=== PATIENT | male | born 1965 | race Caucasian/White ===

== ENCOUNTER 2018-04-23 10:28 | Observation (INO) ==
[2018-04-23] MEDS ORDERED: Morphine Inj 4 MG/ML Vial IV.PUSH ONE (10:42)
--- NOTE | 2018-04-23 10:48 | ED ---
HPI General Chief Complaint: Chest Pain Stated Complaint: Blood Pressure Time Seen by Provider: 04/23/18 10:42 Source: patient Mode of arrival: ambulatory Limitations: no limitations History of Present Illness MD complaint: chest pain Complete Quality Measures for STEMI Alert Patients STEMI Alert: No Onset (ago): hour(s) (4) Duration: constant Onset: during rest Pain location: substernal Severity: moderate Severity scale (1-10): 5 Quality: tightness Pain radiation: none Relieving factors: nothing Exacerbating factors: nothing Context: other (Patient is noncompliant with his medications, as he brought an empty bottle carvedilol has not been filled since 2017) Treatments prior to arrival chest pain: none Related Data Allergies Allergy/AdvReac Type Severity Reaction Status Date / Time No Known Allergies Allergy Verified 04/23/18 10:42 Review of Systems Except as stated in HPI: all other systems reviewed are negative PMFSH History History Provided By: Patient and Family Member Medical History Medical History High cholesterol (Acute) Hypertension (Acute) Stroke (Acute) Surgical History Surgical History H/O hernia repair (Acute) Social History Social History Substance History: No History of Abuse Second Hand Smoke Exposure: Yes Smoking Status: Current every day smoker Tobacco Type: Cigarettes How Often Do You Have a Drink Containing Alcohol: 2 to 3 times a week Exam Narrative Exam Narrative: GENERAL: Well-nourished, well-developed patient in no apparent distress. SKIN: Warm and dry. HEAD: Atraumatic. Normocephalic. EYES: Pupils equal and round. No scleral icterus. No injection or drainage. ENT: No nasal bleeding or discharge. Mucous membranes pink and moist. NECK: Trachea midline. No JVD. CARDIOVASCULAR: Regular rate and rhythm. no rubs or gallops RESPIRATORY: No accessory muscle use. Clear to auscultation. Breath sounds equal bilaterally. GASTROINTESTINAL: Abdomen soft, non-tender, nondistended. No rebound or guarding MUSCULOSKELETAL: Extremities without clubbing, cyanosis, or edema. No obvious deformities. NEUROLOGICAL: Awake and alert. No obvious cranial nerve deficits. Motor grossly within normal limitsExcept for right upper extremity contracted to a stroke per patient Normal speech. PSYCHIATRIC: Appropriate mood and affect; insight and judgment normal. Course Initial Documented Vital Signs Temperature 97.7 F 04/23/18 10:30 Pulse Rate 79 07/08/18 10:30 Respiratory Rate 17 04/23/18 10:30 Blood Pressure 243/132 H 04/23/18 10:30 Pulse Oximetry 97 04/23/18 10:30 Last Documented Vital Signs Temperature 97.7 F 04/23/18 10:30 Pulse Rate 71 04/23/18 11:25 Respiratory Rate 18 04/23/18 11:36 Blood Pressure 200/115 H 04/23/18 11:25 Pulse Oximetry 97 04/23/18 11:25 Critical Care Time Critical Care Time: Yes Total Critical Care Time: 30 Attestation: Aggregate critical care time was [30] minutes. Time to perform other separately billable procedures was not included in the critical care time. My time did not include minutes spent treating any other patients simultaneously or on activities that did not directly contribute to the patient's treatment. The services I provided to this patient were to treat and/or prevent clinically significant deterioration that could result in: [Intracranial hemorrhage, CVA, permanent disability, -] I provided critical care services requiring my management, as noted below: Chart data review, documentation time, medication orders and management, vital sign assessments/reviewing monitor data, ordering and reviewing lab tests, ordering and interpreting/reviewing x-rays and diagnostic studies, care of the patient and discussion of the patient with the admitting physicians. Medical Decision Making Differential Diagnosis Differential Diagnosis: Hypertensive emergency versus intracranial hemorrhage versus SD versus non-STEMI versus aneurysm versus dissection Lab Data Result diagrams: 04/23/18 10:56 04/23/18 10:56 Lab Results 04/23/18 04/23/18 04/23/18 Range/Units 10:56 10:56 10:56 WBC 9.0 (4.0-11.0) th/mm3 RBC 5.35 (4.50-5.90) mil/mm3 Hgb 16.4 (13.0-17.0) gm/dL Hct 49.0 (39.0-51.0) % MCV 91.6 (80.0-100.0) fL MCH 30.7 (27.0-34.0) pg MCHC 33.6 (32.0-36.0) % RDW 13.3 (11.6-17.2) % Plt Count 242 (150-450) th/mm3 MPV 8.3 (7.0-11.0) fL Neut % (Auto) 55.8 (16.0-70.0) % Lymph % (Auto) 29.6 (9.0-44.0) % Hinds % (Auto) 10.9 H (0.0-8.0) % Eos % (Auto) 2.9 (0.0-4.0) % Baso % (Auto) 0.8 (0.0-2.0) % Neut # (Auto) 5.0 (1.8-7.7) th/mm3 Lymph # (Auto) 2.7 (1.0-4.8) th/mm3 Hinds # (Auto) 1.0 H (0.0-0.9) th/mm3 Eos # (Auto) 0.3 (0.0-0.4) th/mm3 Baso # (Auto) 0.1 (0.0-0.2) th/mm3 WBC Differential . Differential Comment Auto diff final PT 10.2 (9.8-11.6) sec INR 1.0 Ratio APTT 30.5 H (24.3-30.1) sec Sodium 138 (136-145) meq/L Potassium 3.8 (3.5-5.1) meq/L Chloride 105 (98-107) meq/L Carbon Dioxide 24.4 (21.0-32.0) meq/L Anion Gap 9 (5-15) meq/L BUN 21 H (7-18) mg/dL Creatinine 1.14 (0.60-1.30) mg/dL Estimated GFR 67 L (>89) mL/min Fasting Glucose 97 (74-99) mg/dL Calcium 9.3 (8.5-10.1) mg/dL Magnesium 2.2 (1.5-2.5) mg/dL Total Bilirubin 0.6 (0.2-1.0) mg/dL AST 40 H (15-37) U/L ALT 69 (12-78) U/L Alkaline Phosphatase 89 (45-117) U/L Total Creatine Kinase 105 (39-308) U/L CK-MB (CK-2) 0.5 (0.5-3.6) ng/mL Troponin I Less than 0.02 L (0.02-0.05) ng/mL B-Natriuretic Peptide (0-100) pg/mL Total Protein 7.7 (6.4-8.2) g/dL Albumin 4.0 (3.4-5.0) g/dL 04/23/18 Range/Units 10:56 WBC (4.0-11.0) th/mm3 RBC (4.50-5.90) mil/mm3 Hgb (13.0-17.0) gm/dL Hct (39.0-51.0) % MCV (80.0-100.0) fL MCH (27.0-34.0) pg MCHC (32.0-36.0) % RDW (11.6-17.2) % Plt Count (150-450) th/mm3 MPV (7.0-11.0) fL Neut % (Auto) (16.0-70.0) % Lymph % (Auto) (9.0-44.0) % Hinds % (Auto) (0.0-8.0) % Eos % (Auto) (0.0-4.0) % Baso % (Auto) (0.0-2.0) % Neut # (Auto) (1.8-7.7) th/mm3 Lymph # (Auto) (1.0-4.8) th/mm3 Hinds # (Auto) (0.0-0.9) th/mm3 Eos # (Auto) (0.0-0.4) th/mm3 Baso # (Auto) (0.0-0.2) th/mm3 WBC Differential Differential Comment PT (9.8-11.6) sec INR Ratio APTT (24.3-30.1) sec Sodium (136-145) meq/L Potassium (3.5-5.1) meq/L Chloride (98-107) meq/L Carbon Dioxide (21.0-32.0) meq/L Anion Gap (5-15) meq/L BUN (7-18) mg/dL Creatinine (0.60-1.30) mg/dL Estimated GFR (>89) mL/min Fasting Glucose (74-99) mg/dL Calcium (8.5-10.1) mg/dL Magnesium (1.5-2.5) mg/dL Total Bilirubin (0.2-1.0) mg/dL AST (15-37) U/L ALT (12-78) U/L Alkaline Phosphatase (45-117) U/L Total Creatine Kinase (39-308) U/L CK-MB (CK-2) (0.5-3.6) ng/mL Troponin I (0.02-0.05) ng/mL B-Natriuretic Peptide 33 (0-100) pg/mL Total Protein (6.4-8.2) g/dL Albumin (3.4-5.0) g/dL Imaging Data Radiologist's impression: ITS Impressions Chest X-Ray 04/23/18 10:42 CONCLUSION: No acute cardiopulmonary disease ECG Data EKG Prior to Arrival: No Attestation: I personally reviewed and interpreted this ECG as follows: Prior ECG tracings: not available for review Interpretation: Normal sinus rhythm, 65 bpm, normal intervals, mild baseline motion artifact however no evidence of any ST elevation SD pattern Discharge Plan Discharge Disposition Patient Disposition: 30 Still Patient Discharge Condition Condition: Stable Discharge Details Discharge Problem: Hypertensive urgency, Chest pain Physicians Team ED Provider: Troy Lopez Discharge Instructions Patient Printed Instructions: Chest Pain (ED) Status ED Status: With Doctor
[2018-04-23] MEDS: Metoprolol Inj 5 MG/5 ML Vial IV.PUSH SCH ×3 (10:55→12:31)
[2018-04-23 11:15] LABS: Baso # (Auto) 0.1 th/mm3 (0.0-0.2); Baso % (Auto) 0.8 % (0.0-2.0); Eos # (Auto) 0.3 th/mm3 (0.0-0.4); Eos % (Auto) 2.9 % (0.0-4.0); Hemoglobin 16.4 gm/dL (13.0-17.0); Lymph # (Auto) 2.7 th/mm3 (1.0-4.8); Lymph % (Auto) 29.6 % (9.0-44.0); Mean Corpuscular HGB Conc 33.6 % (32.0-36.0); Mean Corpuscular Hemoglobin 30.7 pg (27.0-34.0); Mean Corpuscular Volume 91.6 fL (80.0-100.0); Mean Platelet Volume 8.3 fL (7.0-11.0); Mono % (Auto) 10.9 % (0.0-8.0); Neut % (Auto) 55.8 % (16.0-70.0); Platelet Count 242 th/mm3 (150-450); Red Blood Count 5.35 mil/mm3 (4.50-5.90); Red Cell Distribution Width 13.3 % (11.6-17.2)
[2018-04-23 11:24] LABS: Activated Partial Thrombo Time 30.5 sec (24.3-30.1); Prothrombin Time 10.2 sec (9.8-11.6)
--- NOTE | 2018-04-23 11:31 | XR ---
EXAM DATE: 04/23/2018 11:16 AM EDT AGE/SEX: 52 years / Male INDICATIONS: Chest Pain, High Blood Pressure CLINICAL DATA: This is the patient's initial encounter. Patient reports that signs and symptoms have been present for 1 day and indicates a pain score of 0/10. MEDICAL/SURGICAL HISTORY: Hypertension. None. COMPARISON: No prior exams available for comparison. FINDINGS: A single AP view of the chest demonstrates the lungs to be symmetrically aerated without evidence of mass, infiltrate or effusion. The cardiomediastinal contours are unremarkable. Osseous structures a re intact. CONCLUSION: No acute cardiopulmonary disease Electronically signed by: Tom Singh MD 04/23/2018 11:30 AM EDT
[2018-04-23 11:37] LABS: Anion Gap 9 meq/L (5-15); Aspartate Aminotransferase 40 U/L (15-37); Blood Urea Nitrogen 21 mg/dL (7-18); Calcium 9.3 mg/dL (8.5-10.1); Carbon Dioxide 24.4 meq/L (21.0-32.0); Chloride 105 meq/L (98-107); Glomerular Filtration Rate 67 mL/min (>89); Magnesium 2.2 mg/dL (1.5-2.5); Potassium 3.8 meq/L (3.5-5.1); Sodium 138 meq/L (136-145)
[2018-04-23 11:38] LABS: Alanine Aminotransferase 69 U/L (12-78)
[2018-04-23 11:41] LABS: Alkaline Phosphatase 89 U/L (45-117); Creatine Kinase 105 U/L (39-308); Total Protein 7.7 g/dL (6.4-8.2)
[2018-04-23 11:54] LABS: Creatine Kinase MB 0.5 ng/mL (0.5-3.6)
--- NOTE | 2018-04-23 12:33 | P.HPFP ---
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 Patient with at bedside who contributed to history. He reports that his pain started on , and at the time thought it was heartburn. He describes the pain as pressure. It radiated from the throat to the left pectoralis and was associated with blurry vision and left hand numbness. The pain was non-positional, unrelated to breathing, activity or with food. There were no aggravating factors. The pain occurred 2-3 times per day and denies any difficulty breathing. Patient reports drinking 5-6 cups of coffee a day for over 40 years. He was previously prescribed carvedilol for his HTN 2 years and tried taking the last of this prescription to lower his bp. The last time he saw a physician was 2 years ago. He denies any fevers, chills, nausea, vomiting or recent illnesses. - Diagnosis (1) Chest pain (2) Hypertension Inpatient Certification: I certify that the inpatient services were ordered in accordance with Medicare regulations governing the order. This includes certification that hospital inpatient services are reasonable and necessary and in the case of services not specified as inpatient-only under 42 CFR 419.22(n), that they are appropriately provided as inpatient services in accordance to with the 2-midnight benchmark under 43 CFR 412.3(e) Plans for Post Hospital Care: Home Review of Systems Constitutional: Denies body ache(s), Denies chills, Denies excessive sweating, Denies fatigue, Denies fever(s), Denies night sweats Eyes: Reports blurry vision, Reports change in vision, Denies loss of vision Comments: Durring episodes Ears, Nose, Mouth, and Throat: Denies abnormal hearing Cardiovascular: Reports chest pain, Reports chest pain at rest, Reports shortness of breath, Denies chest pain with activity, Denies excessive sweating , Denies fainting, Denies fast heart rate, Denies irregular heart rhythm, Denies leg swelling, Denies radiating jaw, neck or arm pain, Denies rapid, pounding, or irregular heartbeat, Denies shortness of breath with activity, Denies shortness of breath when lying down Respiratory: Denies chest congestion, Denies cough, Denies shortness of breath with activity, Denies stridor Gastrointestinal: Denies abdominal pain, Denies black, tarry stools, Denies change in bowel habits, Denies heartburn, Denies nausea, Denies vomiting Genitourinary: Denies difficulty urinating, Denies painful urination Musculoskeletal: Denies abnormal walking, Denies body aches Neurologic: Reports headache(s), Reports numbness, Denies abnormal hearing, Denies abnormal movements, Denies abnormal speech, Denies confusion, Denies dizziness, Denies lack of coordination, Denies localized weakness, Denies loss of vision, Denies memory loss Comments: Patient reports some hand numbness that began recently. Exact onset unknown. Psychiatric: Reports abnormal sleep pattern, Denies anxiety, Denies behavioral changes, Denies change in appetite, Denies confusion, Denies depression, Denies difficulty concentrating, Denies irritability, Denies memory loss Comments: Has not slept in days Endocrine: Denies cold intolerance, Denies excessive sweating, Denies heat intolerance, Denies rapid, pounding, or irregular heartbeat Hematologic/Lymphatic: Denies easy bleeding Allergic/Immunologic: Denies GI upset with certain foods PMFSH - History History Provided By: Patient, Family Member - Medical History Medical History: Medical History (Last Updated 04/23/18 @ 10:49 by Avis Eduardo) High cholesterol Hypertension Stroke - Surgical History Surgical History: Surgical History (Last Updated 04/23/18 @ 10:49 by Avis Eduardo) H/O hernia repair - Tobacco History Second Hand Smoke Exposure: Yes Tobacco Use In Past 30 Days: Yes Smoking Status: Current every day smoker Tobacco Type: Cigarettes - Alcohol History How Often Do You Have a Drink Containing Alcohol: 2 to 3 times a week - Substance Use History Substance History: No History of Abuse - Immunization History Tetanus Immunization: Unsure Hx Influenza Vaccine This Season: No Medications and Allergies Active Medications: Active Medications Sodium Chloride (Ns Flush) 2 ml IV.FLUSH UNSCH PRN PRN Reason: FLUSH AFTER USING IV ACCESS Allergies Allergy/AdvReac Type Severity Reaction Status Date / Time No Known Allergies Allergy Verified 04/23/18 10:42 Home Medications Medication Instructions Recorded Confirmed Type Coreg 12.5 mg PO BID 04/23/18 04/23/18 History Exam Vital signs: Vital Signs 04/23/18 10:30 04/23/18 10:47 04/23/18 11:25 Temperature 97.7 F Pulse Rate 79 71 Respiratory Rate 17 16 Blood Pressure 243/132 H 200/115 H Blood Pressure [Left Arm] 222/132 H Blood Pressure [Right Arm] 238/146 H Pulse Oximetry 97 97 97 04/23/18 11:36 04/23/18 12:28 Temperature Pulse Rate 66 Respiratory Rate 18 18 Blood Pressure 175/118 H Blood Pressure [Left Arm] Blood Pressure [Right Arm] Pulse Oximetry 97 Intake & Output 04/22/18 04/23/18 04/23/18 18:59 06:59 18:59 Weight 92.079 kg - Constitutional moderate distress, average body habitus, diaphoretic, cooperative - Routine HEENT Exam Head: Present: normocephalic, atraumatic Eye: Present: EOMI. Absent: conjunctival icterus, scleral injection - Routine Chest/Breast/Axilla Exam Chest wall: Absent: tenderness, mass - Routine Respiratory Exam Present: CTA bilaterally. Absent: accessory muscle use, rales, respiratory distress, rhonchi, stridor, wheezes, crackles - Routine Cardiovascular Exam Present: RRR, S1, S2. Absent: murmur, gallop, rubs - Routine Abdominal Exam Present: soft, normoactive bowel sounds. Absent: tenderness, distended, rebound , guarding - Routine Extremities Exam Absent: cyanosis, clubbing, edema - Routine Neurological Exam Present: alert, oriented X3, CN II-XII intact, motor deficit, moving all extremities, normal speech. Absent: sensory deficit, altered mental status, normal tone, facial asymmetry, tremors Patient has residual motor deficit from stroke in infancy, Right sided functional but strength 2/ in RUE and 3/5 in RLE. Right hand in clenched position. - Detailed Neurological Exam Cranial nerves: Normal CN II, Normal CN III, Normal CN IV, Normal CN V, Normal CN , Normal CN VII, Normal CN XI, Normal CN XII Speech: Absent: expressive aphasia, slurred Cerebellar function: Normal finger to nose - Detailed Neurological Exam: Coma Scale Eye Opening: Spontaneous Verbal Response: Oriented Motor Response: Obey commands Lexii Coma Scale Total: 15 Results - Labs Result diagrams: 04/23/18 10:56 04/23/18 10:56 Abnormal lab results 04/23/18 04/23/18 04/23/18 Range/Units 10:56 10:56 10:56 [place] % (Auto) 10.9 H (0.0-8.0) % [place] # (Auto) 1.0 H (0.0-0.9) th/mm3 APTT 30.5 H (24.3-30.1) sec BUN 21 H (7-18) mg/dL Estimated GFR 67 L (>89) mL/min AST 40 H (15-37) U/L Troponin I Less than 0.02 L (0.02-0.05) ng/mL Short CBC 04/23/18 Range/Units 10:56 WBC 9.0 (4.0-11.0) th/mm3 Hgb 16.4 (13.0-17.0) gm/dL Hct 49.0 (39.0-51.0) % Plt Count 242 (150-450) th/mm3 BMP 04/23/18 10:56 Sodium 138 Potassium 3.8 Chloride 105 Carbon Dioxide 24.4 BUN 21 H Creatinine 1.14 Calcium 9.3 Cardiac Enzymes 04/23/18 Range/Units 10:56 Total Creatine Kinase 105 (39-308) U/L CK-MB (CK-2) 0.5 (0.5-3.6) ng/mL Troponin I Less than 0.02 L (0.02-0.05) ng/mL Liver Function 04/23/18 Range/Units 10:56 Total Bilirubin 0.6 (0.2-1.0) mg/dL AST 40 H (15-37) U/L ALT 69 (12-78) U/L Alkaline Phosphatase 89 (45-117) U/L Albumin 4.0 (3.4-5.0) g/dL - Imaging Impressions Chest X-Ray 04/23/18 10:42 CONCLUSION: No acute cardiopulmonary disease EK04/23/18 Sinus rhythm NORMAL ECG Caprini VTE Risk Assessment Caprini VTE Risk Assessment: No/Low Risk (score <= 1) Caprini Risk Assessment Model: Point Value = 1 Point Value = 2 Point Value = 3 Point Value = 5 Age 41-60 Minor surgery BMI > 25 kg/m2 Swollen legs Varicose veins or History of unexplained or recurrent spontaneous Oral contraceptives or hormone replacement Sepsis (< 1 month) Serious lung disease, including pneumonia (< 1 month) Abnormal pulmonary function Acute myocardial infarction Congestive heart failure (< 1 month) History of inflammatory bowel disease Medical patient at bed rest Age 61-74 Arthroscopic surgery Major open surgery (> 45 min) Laparoscopic surgery (> 45 min) Malignancy Confined to bed (> 72 hours) Immobilizing plaster cast Central venous access Age >= 75 History of VTE Family history of VTE Factor V Leiden Prothrombin [id number] Lupus anticoagulant Anticardiolipin antibodies Elevated serum homocysteine Heparin-induced thrombocytopenia Other congenital or acquired thrombophilia Stroke (< 1 month) Elective arthroplasty Hip, pelvis, or leg fracture Acute spinal cord injury (< 1 month) Prophylaxis Regimen: Total Risk Factor Score Risk Level Prophylaxis Regimen 0-1 Low Early ambulation 2 Moderate Order ONE of the following: *Sequential Compression Device (SCD) *Heparin 5000 units SQ BID 3-4 Higher Order ONE of the following medications: *Heparin 5000 units SQ TID *Enoxaparin/Lovenox 40 mg SQ daily (WT < 150 kg, CrCl > 30 mL/min) *Enoxaparin/Lovenox 30 mg SQ daily (WT < 150 kg, CrCl > 10-29 mL/min) *Enoxaparin/Lovenox 30 mg SQ BID (WT < 150 kg, CrCl > 30 mL/min) AND/OR *Sequential Compression Device (SCD) 5 or more Highest Order ONE of the following medications: *Heparin 5000 units SQ TID (Preferred with Epidurals) *Enoxaparin/Lovenox 40 mg SQ daily (WT < 150 kg, CrCl > 30 mL/min) *Enoxaparin/Lovenox 30 mg SQ daily (WT < 150 kg, CrCl > 10-29 mL/min) *Enoxaparin/Lovenox 30 mg SQ BID (WT < 150 kg, CrCl > 30 mL/min) AND *Sequential Compression Device (SCD) Assessment and Plan - Assessment (1) Chest pain Code(s): R07.9 - Chest pain, unspecified Status: Acute Plan: Patient reports a 4 day history of throat and chest pain that does not radiate, is non-positonal, and unrelated to activity, breathing, or food. His pain had no aggravating factors but reports experiencing relief with tums. This patient has a 2 year history of HTN and has not been treated. Upon presentation in the ED the patient had a bp reading of 243/ 132. In the ED his bp was controlled with clonidine, metroprolol and nitroglycerine. His blood pressure at admission was 115/78. Initial troponin was less than .02 and initial EKG was normal. Admitted to obs for ACS rule out. - Trend troponin and CK-MB - Telemetry - Serial ECG - Monitor Vitals - Clonidine PRN - Neuro Checks - Cardiac Diet Nutrition: Cardiac/ Dash Diet Fluids and Electrolytes: NS DVT Prophylaxis: Heparin SQ (2) Hypertension Code(s): I10 - Essential (primary) hypertension Status: Chronic Plan: Patient diagnosed 2 years ago originally treated with carvedilol but has not seen a physician since 2017. on arrival to ED patients bp was at 243/132, now controlled. - PRN Clonidine goal <180/100. Assessment and Plan - Assessment (1) Chest pain Code(s): R07.9 - Chest pain, unspecified Status: Acute (2) Hypertension Code(s): I10 - Essential (primary) hypertension Status: Chronic (1) Chest pain Qualifiers: Chest pain type: unspecified Qualified Code(s): R07.9 - Chest pain, unspecified (2) Hypertension Qualifiers: Hypertension type: essential hypertension Qualified Code(s): I10 - Essential (primary) hypertension (1) Chest pain Qualifiers: Chest pain type: unspecified Qualified Code(s): R07.9 - Chest pain, unspecified (2) Hypertension Qualifiers: Hypertension type: essential hypertension Qualified Code(s): I10 - Essential (primary) hypertension
[2018-04-23] MEDS ORDERED: Temazepam 15 MG Capsule PO PRN (13:03)
[2018-04-23] MEDS ORDERED: Bisacodyl 10 MG Supp RECTAL PRN (13:03)
[2018-04-23] MEDS ORDERED: Sodium Chlor 0.9% Inj 500 ML IV.SIG ONE (13:20)
[2018-04-23] MEDS ORDERED: Enoxaparin Inj 30 MG/0.3 ML Syringe SQ SCH (14:00)
--- NOTE | 2018-04-23 14:00 | ECG ---
Date Performed: 04/23/2018 Time Performed: 10:44:47 PTAGE: 52 years EKG: Sinus rhythm NORMAL ECG NO PREVIOUS TRACING DOCTOR: Matt Taylor Interpretating Date/Time 04/23/2018 13:59:52
[2018-04-23 18:27] LABS: Creatine Kinase 73 U/L (39-308)
[2018-04-23] MEDS: Senna/Docusate Sodium 8.6/50 MG Tablet PO SCH (20:47)
[2018-04-24 00:22] LABS: Creatine Kinase 63 U/L (39-308)
[2018-04-24 06:10] LABS: Albumin 3.7 g/dL (3.4-5.0); Anion Gap 8 meq/L (5-15); Aspartate Aminotransferase 30 U/L (15-37); Blood Urea Nitrogen 20 mg/dL (7-18); Calcium 8.8 mg/dL (8.5-10.1); Carbon Dioxide 25.4 meq/L (21.0-32.0); Chloride 107 meq/L (98-107); Glomerular Filtration Rate 80 mL/min (>89); Glucose,Random 93 mg/dL (74-106); Potassium 3.9 meq/L (3.5-5.1); Sodium 140 meq/L (136-145)
[2018-04-24 06:11] LABS: Alanine Aminotransferase 60 U/L (12-78)
[2018-04-24 06:14] LABS: Alkaline Phosphatase 75 U/L (45-117); Total Protein 6.8 g/dL (6.4-8.2)
[2018-04-24] MEDS: Senna/Docusate Sodium 8.6/50 MG Tablet PO SCH (08:30)
[2018-04-24] MEDS ORDERED: Carvedilol 12.5 MG Tablet PO SCH (09:00)
--- NOTE | 2018-04-24 09:50 | ECG ---
Date Performed: 04/23/2018 Time Performed: 23:54:06 PTAGE: 52 years EKG: SINUS BRADYCARDIA POSSIBLE RIGHT VENTRICULAR CONDUCTION DELAY ST ELEVATION, PROBABLY EARLY REPOLARIZATION BORDERLINE ECG Since the PREVIOUS TRACING , no significant change noted PREVIOUS TRACIN04/23/2018 17.13 DOCTOR: Khari Cavanaugh Interpretating Date/Time 04/24/2018 09:47:56
--- NOTE | 2018-04-24 09:50 | ECG ---
Date Performed: 04/23/2018 Time Performed: 17:13:54 PTAGE: 52 years EKG: SINUS BRADYCARDIA ST ELEVATION, PROBABLY EARLY REPOLARIZATION BORDERLINE ECG Since the PREVIOUS TRACING , no significant change noted PREVIOUS TRACIN04/23/2018 10.44 DOCTOR: Khari Cavanaugh Interpretating Date/Time 04/24/2018 09:48:06
--- NOTE | 2018-04-24 09:58 | P.HPFP ---
History of Present Illness Primary Care Physician: No Primary Care Physician History of Present Illness: Patient is a 52 year old M with a past medical history of untreated hypertension and weakness of the right hand probably a injury with residual right sided motor deficit who presented to the ED with a 4 day history of chest/ throat pain. Patient with at bedside who contributed to history. He reports that his pain started on , and at the time thought it was heartburn. He describes the pain as pressure. It radiated from the throat to the left pectoralis and was associated with blurry vision and left hand numbness. The pain was non-positional, unrelated to breathing, activity or with food. There were no aggravating factors. The pain occurred 2-3 times per day and denies any difficulty breathing. Patient reports drinking 5-6 cups of coffee a day for over 40 years. He was previously prescribed carvedilol for his HTN 2 years and tried taking the last of this prescription to lower his bp. The last time he saw a physician was 2 years ago. He denies any fevers, chills, nausea, vomiting or recent illnesses. His sxs would go away when he took TUMS. He stated that TUMS made all sxs be gone for 4-5 hours and then when they recurred the TUMS took them away again - Diagnosis (1) Chest pain (2) Hypertension Inpatient Certification: I certify that the inpatient services were ordered in accordance with Medicare regulations governing the order. This includes certification that hospital inpatient services are reasonable and necessary and in the case of services not specified as inpatient-only under 42 CFR 419.22(n), that they are appropriately provided as inpatient services in accordance to with the 2-midnight benchmark under 43 CFR 412.3(e) Plans for Post Hospital Care: Home [facility] - History History Provided By: Patient, Family Member - Medical History Medical History: Medical History (Last Updated 04/23/18 @ 10:49 by Avis Eduardo) High cholesterol Hypertension Stroke - Surgical History Surgical History: Surgical History (Last Updated 04/23/18 @ 10:49 by Avis Eduardo) H/O hernia repair - Tobacco History Second Hand Smoke Exposure: Yes Tobacco Use In Past 30 Days: Yes Smoking Status: Current every day smoker Tobacco Type: Cigarettes - Alcohol History How Often Do You Have a Drink Containing Alcohol: 2 to 3 times a week - Substance Use History Substance History: No History of Abuse - Travel History Recent Travel in the [place] Within the Last 8 Weeks: No Recent Travel Out of the Country Within the Last 8 Weeks: No - Immunization History Tetanus Immunization: Unsure Hx Influenza Vaccine This Season: No Medications and Allergies Active Medications: Active Medications Al Hydroxide/Mg Hydroxide (Milk Of Magnesia Liq) 30 ml PO Q12H PRN PRN Reason: Mild Constipation Bisacodyl (Dulcolax Supp) 10 mg RECTAL DAILY PRN PRN Reason: SEVERE CONSITIPATION Carvedilol (Coreg) 12.5 mg PO BID [facility] Last Admin: 04/24/18 08:30 Dose: 12.5 mg Clonidine HCl (Catapres) 0.1 mg PO Q6H PRN PRN Reason: SEE LABEL COMMENTS Enoxaparin Sodium (Lovenox Inj) 30 mg SQ Q24H [facility] Last Admin: 04/23/18 13:48 Dose: 30 mg Lactulose (Lactulose Liq) 30 ml PO DAILY PRN PRN Reason: SEVERE CONSITIPATION Ondansetron HCl (Zofran Odt) 4 mg PO Q6H PRN PRN Reason: NAUSEA OR VOMITING Senna/Docusate Sodium (Love-Colace) 1 tab PO BID [facility] Last Admin: 04/24/18 08:30 Dose: 1 tab Sennosides (Senokot) 17.2 mg PO Q12H PRN PRN Reason: Moderate Constipation Sodium Chloride (Ns Flush) 2 ml IV.FLUSH UNSCH PRN PRN Reason: FLUSH AFTER USING IV ACCESS Temazepam (Restoril) 15 mg PO HS PRN PRN Reason: INSOMNIA Allergies Allergy/AdvReac Type Severity Reaction Status Date / Time No Known Allergies Allergy Verified 04/23/18 10:42 Home Medications Medication Instructions Recorded Confirmed Type Coreg 12.5 mg PO BID 04/23/18 04/23/18 History Exam Vital signs: Vital Signs 04/23/18 10:30 04/23/18 10:47 04/23/18 11:25 Temperature 97.7 F Pulse Rate 79 71 Respiratory Rate 17 16 Blood Pressure 243/132 H 200/115 H Blood Pressure [Left Arm] 222/132 H Blood Pressure [Right Arm] 238/146 H Pulse Oximetry 97 97 97 04/23/18 11:36 04/23/18 12:28 04/23/18 12:33 Temperature Pulse Rate 66 68 Respiratory Rate 18 18 20 Blood Pressure 175/118 H 163/115 H Blood Pressure [Left Arm] Blood Pressure [Right Arm] Pulse Oximetry 97 96 04/23/18 13:36 04/23/18 13:38 04/23/18 16:00 Temperature 97.8 F Pulse Rate 50 L 56 L 68 Respiratory Rate 16 18 Blood Pressure 111/77 116/78 115/78 Blood Pressure [Left Arm] Blood Pressure [Right Arm] Pulse Oximetry 96 04/23/18 21:17 04/23/18 21:50 04/23/18 23:56 Temperature 98.1 F 97.9 F Pulse Rate 71 60 Respiratory Rate 17 18 Blood Pressure 118/76 133/89 Blood Pressure [Left Arm] Blood Pressure [Right Arm] Pulse Oximetry 96 97 97 04/24/18 00:01 04/24/18 07:09 04/24/18 07:48 Temperature 98.5 F Pulse Rate 59 L 63 Respiratory Rate 16 Blood Pressure 144/95 H Blood Pressure [Left Arm] Blood Pressure [Right Arm] Pulse Oximetry 99 97 04/24/18 09:15 Temperature Pulse Rate 80 Respiratory Rate Blood Pressure Blood Pressure [Left Arm] Blood Pressure [Right Arm] Pulse Oximetry Intake & Output 04/23/18 04/24/18 04/24/18 18:59 06:59 18:59 Intake Total 500 / 500 Balance 500 / 500 Weight 92.323 kg Intake: IV 500 / 500 NS Inj 500 ML @ Wide Open IV. 500 / 500 SIG BOLUS ONE Rx#:[id number] Other: Weight On Admission 92.079 kg Results - Labs Result diagrams: 04/23/18 10:56 04/24/18 05:17 Abnormal lab results 04/23/18 04/23/18 04/23/18 Range/Units 10:56 10:56 10:56 [place] % (Auto) 10.9 H (0.0-8.0) % [place] # (Auto) 1.0 H (0.0-0.9) th/mm3 APTT 30.5 H (24.3-30.1) sec BUN 21 H (7-18) mg/dL Estimated GFR 67 L (>89) mL/min AST 40 H (15-37) U/L Troponin I Less than 0.02 L (0.02-0.05) ng/mL 07/08/18 07/08/18 07/09/18 Range/Units 17:41 23:34 05:17 [place] % (Auto) (0.0-8.0) % [place] # (Auto) (0.0-0.9) th/mm3 APTT (24.3-30.1) sec BUN 20 H (7-18) mg/dL Estimated GFR 80 L (>89) mL/min AST (15-37) U/L Troponin I Less than 0.02 L Less than 0.02 L (0.02-0.05) ng/mL Short CBC 04/23/18 Range/Units 10:56 WBC 9.0 (4.0-11.0) th/mm3 Hgb 16.4 (13.0-17.0) gm/dL Hct 49.0 (39.0-51.0) % Plt Count 242 (150-450) th/mm3 BMP 04/23/18 04/24/18 10:56 05:17 Sodium 138 140 Potassium 3.8 3.9 Chloride 105 107 Carbon Dioxide 24.4 25.4 BUN 21 H 20 H Creatinine 1.14 0.98 Calcium 9.3 8.8 Cardiac Enzymes 04/23/18 04/23/18 04/23/18 Range/Units 10:56 17:41 23:34 Total Creatine Kinase 105 73 63 (39-308) U/L CK-MB (CK-2) 0.5 (0.5-3.6) ng/mL Troponin I Less than 0.02 L Less than 0.02 L Less than 0.02 L (0.02-0.05) ng/mL Liver Function 04/23/18 04/24/18 Range/Units 10:56 05:17 Total Bilirubin 0.6 0.6 (0.2-1.0) mg/dL AST 40 H 30 (15-37) U/L ALT 69 60 (12-78) U/L Alkaline Phosphatase 89 75 (45-117) U/L Albumin 4.0 3.7 (3.4-5.0) g/dL - Imaging Impressions Chest X-Ray 04/23/18 10:42 CONCLUSION: No acute cardiopulmonary disease Caprini VTE Risk Assessment Caprini VTE Risk Assessment: No/Low Risk (score <= 1) Caprini Risk Assessment Model: Point Value = 1 Point Value = 2 Point Value = 3 Point Value = 5 Age 41-60 Minor surgery BMI > 25 kg/m2 Swollen legs Varicose veins or History of unexplained or recurrent spontaneous Oral contraceptives or hormone replacement Sepsis (< 1 month) Serious lung disease, including pneumonia (< 1 month) Abnormal pulmonary function Acute myocardial infarction Congestive heart failure (< 1 month) History of inflammatory bowel disease Medical patient at bed rest Age 61-74 Arthroscopic surgery Major open surgery (> 45 min) Laparoscopic surgery (> 45 min) Malignancy Confined to bed (> 72 hours) Immobilizing plaster cast Central venous access Age >= 75 History of VTE Family history of VTE Factor V Leiden Prothrombin [id number] Lupus anticoagulant Anticardiolipin antibodies Elevated serum homocysteine Heparin-induced thrombocytopenia Other congenital or acquired thrombophilia Stroke (< 1 month) Elective arthroplasty Hip, pelvis, or leg fracture Acute spinal cord injury (< 1 month) Prophylaxis Regimen: Total Risk Factor Score Risk Level Prophylaxis Regimen 0-1 Low Early ambulation 2 Moderate Order ONE of the following: *Sequential Compression Device (SCD) *Heparin 5000 units SQ BID 3-4 Higher Order ONE of the following medications: *Heparin 5000 units SQ TID *Enoxaparin/Lovenox 40 mg SQ daily (WT < 150 kg, CrCl > 30 mL/min) *Enoxaparin/Lovenox 30 mg SQ daily (WT < 150 kg, CrCl > 10-29 mL/min) *Enoxaparin/Lovenox 30 mg SQ BID (WT < 150 kg, CrCl > 30 mL/min) AND/OR *Sequential Compression Device (SCD) 5 or more Highest Order ONE of the following medications: *Heparin 5000 units SQ TID (Preferred with Epidurals) *Enoxaparin/Lovenox 40 mg SQ daily (WT < 150 kg, CrCl > 30 mL/min) *Enoxaparin/Lovenox 30 mg SQ daily (WT < 150 kg, CrCl > 10-29 mL/min) *Enoxaparin/Lovenox 30 mg SQ BID (WT < 150 kg, CrCl > 30 mL/min) AND *Sequential Compression Device (SCD) Assessment and Plan - Assessment (1) Chest pain Code(s): R07.9 - Chest pain, unspecified Status: Acute Plan: Patient reports a 4 day history of throat and chest pain that does not radiate, is non-positonal, and unrelated to activity, breathing, or food. His pain had no aggravating factors but reports experiencing relief with tums. This patient has a 2 year history of HTN and has not been treated. Upon presentation in the ED the patient had a bp reading of 243/ 132. In the ED his bp was controlled with clonidine, metroprolol and nitroglycerine. His blood pressure at admission was 115/78. Initial troponin was less than .02 and initial EKG was normal. Admitted to obs for ACS rule out. - Trend troponin and CK-MB - Telemetry - Serial ECG - Monitor Vitals - Clonidine PRN - Neuro Checks - Cardiac Diet Nutrition: Cardiac/ Dash Diet Fluids and Electrolytes: NS DVT Prophylaxis: Heparin SQ (2) Hypertension Code(s): I10 - Essential (primary) hypertension Status: Chronic Plan: Patient diagnosed 2 years ago originally treated with carvedilol but has not seen a physician since 2017. on arrival to ED patients bp was at 243/132, now controlled. - PRN Clonidine goal <180/100. - Assessment and Plan Mr Chand and his are eager to go home today. He had elevated BPs for unknown reasons when he presented to the hospital. He has only been on mild doses of BP meds and has been off these for the better part of a year. With his very high pressures, his outpt Dr that he will be seeing can determine if he needs any more workup. He may have had anxiety or something else contributing. When he came to the ED, he received a bit more antihypertensives than he needed and his pressures dropped too low. For now, he is in a good range and can follow as an outpt. will consider treating with a PPI as he has been having GI sxs for a few weeks. H&P: Quality - VTE Deep Vein Thrombosis/Pulmonary Embolism Present on Admission: No (1) Chest pain Qualifiers: Chest pain type: unspecified Qualified Code(s): R07.9 - Chest pain, unspecified (2) Hypertension Qualifiers: Hypertension type: essential hypertension Qualified Code(s): I10 - Essential (primary) hypertension
[2018-04-24] MEDS ORDERED: COREG 12.5 MG PO SCH (10:00)
== END 2018-04-24 11:53 | disposition home or self-care (01) ==
LOC: NEPE 10:28 → NEDA 10:28 → NEPFCDU 10:28
PROVIDERS: ADMIT Family Medicine; ATTEND Family Medicine
DX: H53.8 Other visual disturbances; R07.9 Chest pain, unspecified; I10 Essential (primary) hypertension; R53.1 Weakness; R06.02 Shortness of breath; E78.00 Pure hypercholesterolemia, unspecified; F17.210 Nicotine dependence, cigarettes, uncomplicated; Z91.14 Patient's other noncompliance with medication regimen; R20.0 Anesthesia of skin; Z79.899 Other long term (current) drug therapy; Z86.73 Personal history of transient ischemic attack (TIA), and cerebral infarction without residual deficits

== ENCOUNTER 2018-09-27 11:38 | Observation (INO) ==
[2018-09-27] MEDS ORDERED: Carvedilol 12.5 MG Tablet PO ONE (12:15)
[2018-09-27] MEDS ORDERED: Vancomycin Inj 1,000 MG in Sodium Chlor 0.9% Inj 250 ML IV.SIG ONE (12:15)
--- NOTE | 2018-09-27 12:28 | ED ---
HPI General Chief complaint: Dizziness Stated complaint: Lac left hand pinky finger Time Seen by Provider: 09/27/18 11:57 Source: patient and family Mode of arrival: ambulatory Limitations: no limitations History of Present Illness HPI narrative: Patient is a pleasant 53-year-old male with history of hypertension, presents the emergency room for evaluation of left finger pain. Patient reports that he smokes tobacco daily, he is trying to quit. Patient reports that he had an urge to smoke on Tuesday (5 days ago), reports that he went outside to make lighting a cigarette but got up too fast and ended up falling forwards. Patient reports that he tripped and landed on a brick onto his left hand. Patient reports that his left digit #5 got stuck on a brick causing a laceration. Patient is left-hand dominant. Patient reports that tetanus has been updated 3 years ago. Patient denies any trauma to the head or neck, denies any dizziness, denies any chest pain or shortness of breath. Reports that his made him go to an urgent care center today who sent him to the emergency room for evaluation. Patient reports that he feels fine other than having a laceration to his left digit #5. Patient denies any fevers or chills, denies any nausea or vomiting. Patient was recently diagnosed with hypertension, he does take carvedilol 25 mg twice daily, he did not take his antihypertensives today as his rushed him out of the home to go to an urgent care center today. Related Data Home Medications Medication Instructions Recorded Confirmed carvedilol 25 mg PO BID 09/27/18 09/27/18 Allergies Allergy/AdvReac Type Severity Reaction Status Date / Time No Known Allergies Allergy Verified 09/27/18 12:03 Review of Systems ROS: all other systems reviewed are negative [facility] Medical History Medical History High cholesterol (Acute) Hypertension (Acute) Stroke (Acute) Surgical History Surgical History History of ankle surgery (Acute) H/O hernia repair (Acute) Social History Social History Substance History: No History of Abuse Second Hand Smoke Exposure: No (PT QUIT 2 WEEKS AGO) Smoking Status: Former smoker Tobacco Type: Cigarettes How Often Do You Have a Drink Containing Alcohol: 2 to 3 times a week Recent Travel in [facility] within the Last 8 Weeks: No Recent Out of Country Travel within the Last 8 Weeks: No Immunization History Tetanus Immunization: Unsure Exam Narrative Exam Narrative: GENERAL: NAD SKIN: Focused skin assessment warm/dry. HEAD: Atraumatic. Normocephalic. EYES: Pupils equal and round. No scleral icterus. No injection or drainage. ENT: No nasal bleeding or discharge. Mucous membranes pink and moist. NECK: Trachea midline. No JVD. CARDIOVASCULAR: Regular rate and rhythm. No murmur appreciated. RESPIRATORY: No accessory muscle use. Clear to auscultation. Breath sounds equal bilaterally. GASTROINTESTINAL: Abdomen soft, non-tender, nondistended. Hepatic and splenic margins not palpable. MUSCULOSKELETAL: No clubbing. No cyanosis. No edema. Left hand: open deformity to digit #5 with swelling, normal ROM to left wrist/ elbow shoulder rue: normal exam NEUROLOGICAL: Awake and alert. No obvious cranial nerve deficits. Motor grossly within normal limits. Normal speech. PSYCHIATRIC: Appropriate mood and affect; insight and judgment normal. Procedures Orthopedic Joint Reduction Joint #1: Time Out Performed: No Side: left Joint Reduction Location: finger (digit #5) Analgesia: nerve block Local anesthetic used: lidocaine 1% Amount of anesthetic used (mL): 3 Technique Used: direct manipulation Post-Reduction Neuro Exam: intact Post-Reduction Vascular Exam: intact Post Reduction X-Ray Obtained: Yes Splint Applied: Yes Patient Tolerated Procedure: well Course Initial Documented Vital Signs Temperature 98.3 F 09/27/18 11:46 Pulse Rate 72 09/27/18 11:46 Respiratory Rate 16 09/27/18 11:46 Blood Pressure 199/110 H 09/27/18 11:46 Pulse Oximetry 98 09/27/18 11:46 Last Documented Vital Signs Temperature 98.3 F 09/27/18 11:46 Pulse Rate 69 09/27/18 12:40 Respiratory Rate 16 09/27/18 12:40 Blood Pressure 199/120 H 09/27/18 12:40 Pulse Oximetry 98 09/27/18 12:40 Medical Decision Making MDM Narrative Medical decision making narrative: Patient is a 53-year-old male who was sent to the emergency room by urgent care as he has an open dislocation/fracture to his left hand #5. This injury occurred on Tuesday. Patient denies any lightheaded or dizziness, he reports that he got up too fast and fell forwards landing on his left hand causing this injury. Given that he has an open dislocation/fracture, x-ray of his hand was ordered. Patient's tetanus is up-to -date. Patient will be given dose of IV vancomycin. Lab work including cultures were ordered. Plan to review case with hand surgeon as patient has an open joint case reviewed with Dr. Albert - request that I reduce finger in the ER - admit to medicine service and cover for infection. Patient is agreeable to plan of care finger was reduced after block placed. finger was irrigated with betadine and was placed into a splint case reviewed with Dr. Hernandez who accepts pt to service Medical Screen Exam Complete: Yes Emergency Medical Condition: Yes Differential Diagnosis Differential Diagnosis: dislocation/fracture Medical Records Medical records reviewed: Yes I reviewed the patient's medical records. Lab Data Lab results reviewed: Yes I reviewed the patient's lab results. Result diagrams: 09/27/18 12:20 09/27/18 12:20 Lab Results 09/27/18 09/27/18 09/27/18 Range/Units 12:20 12:20 12:20 WBC 9.5 (4.0-11.0) th/mm3 RBC 5.11 (4.50-5.90) mil/mm3 Hgb 16.7 (13.0-17.0) gm/dL Hct 48.8 (39.0-51.0) % MCV 95.6 (80.0-100.0) fL MCH 32.7 (27.0-34.0) pg MCHC 34.2 (32.0-36.0) % RDW 13.9 (11.6-17.2) % Plt Count 235 (150-450) th/mm3 MPV 8.1 (7.0-11.0) fL Prelim Diff (Auto) Slide review pending Neut % (Auto) 66.8 (16.0-70.0) % Lymph % (Auto) 20.4 (9.0-44.0) % [place] % (Auto) 9.8 H (0.0-8.0) % Eos % (Auto) 2.1 (0.0-4.0) % Baso % (Auto) 0.9 (0.0-2.0) % Neut # (Auto) 6.3 (1.8-7.7) th/mm3 Lymph # (Auto) 1.9 (1.0-4.8) th/mm3 [place] # (Auto) 0.9 (0.0-0.9) th/mm3 Eos # (Auto) 0.2 (0.0-0.4) th/mm3 Baso # (Auto) 0.1 (0.0-0.2) th/mm3 WBC Differential . Diff Scan Auto diff confirmed Differential Comment . Platelet Estimate Normal (Normal) Platelet Morphology Normal (Normal) PT 10.4 (9.8-11.6) sec INR 1.0 Ratio APTT 30.7 (23.4-31.7) sec Sodium 140 (136-145) meq/L Potassium 4.2 (3.5-5.1) meq/L Chloride 110 H (98-107) meq/L Carbon Dioxide 24.2 (21.0-32.0) meq/L Anion Gap 6 (5-15) meq/L BUN 24 H (7-18) mg/dL Creatinine 1.02 (0.60-1.30) mg/dL Estimated GFR 76 L (>89) mL/min Random Glucose 119 H (74-106) mg/dL Calcium 8.8 (8.5-10.1) mg/dL Imaging Data Attestation: I personally reviewed and interpreted this imaging study as follows : Radiologist's impression: Hand X-Ray 09/27/18 12:14 CONCLUSION: Dislocation at the joint fifth digit ECG Data EKG Prior to Arrival: No Attestation: I personally reviewed and interpreted this ECG as follows: Interpretation: EKG at 1233 shows normal sinus rhythm at 60bpm, qt/qtc: 377/377 , there are no acute st or t wave changes Discharge Plan Discharge Disposition Patient Disposition: ED Admit(ED Internal Use Only) Discharge Condition Condition: Stable Discharge Order Discharge Orders: ED Use Only Admit Order (Routine); Ordered 09/27/18 Ordered By: Vanessa Trinidad Physicians Team ED Provider: Vanessa Trinidad Primary Care Provider: Bruno Dooley Other Providers: Jessica Albert Rxs /Orders / Referrals /Forms Prescriptions: No Action carvedilol 25 mg Tablet 25 mg PO BID RF: 0 Discharge Interventions Interventions: Vital Signs Last Done: 09/27/18 12:40 Status ED Status: Pending Admission
[2018-09-27 12:54] LABS: Baso # (Auto) 0.1 th/mm3 (0.0-0.2); Baso % (Auto) 0.9 % (0.0-2.0); Eos # (Auto) 0.2 th/mm3 (0.0-0.4); Eos % (Auto) 2.1 % (0.0-4.0); Hematocrit 48.8 % (39.0-51.0); Hemoglobin 16.7 gm/dL (13.0-17.0); Lymph # (Auto) 1.9 th/mm3 (1.0-4.8); Lymph % (Auto) 20.4 % (9.0-44.0); Mean Corpuscular HGB Conc 34.2 % (32.0-36.0); Mean Corpuscular Hemoglobin 32.7 pg (27.0-34.0); Mean Corpuscular Volume 95.6 fL (80.0-100.0); Mean Platelet Volume 8.1 fL (7.0-11.0); Mono # (Auto) 0.9 th/mm3 (0.0-0.9); Mono % (Auto) 9.8 % (0.0-8.0); Neut # (Auto) 6.3 th/mm3 (1.8-7.7); Neut % (Auto) 66.8 % (16.0-70.0); Platelet Count 235 th/mm3 (150-450); Red Blood Count 5.11 mil/mm3 (4.50-5.90); Red Cell Distribution Width 13.9 % (11.6-17.2); White Blood Count 9.5 th/mm3 (4.0-11.0)
[2018-09-27 13:05] LABS: Activated Partial Thrombo Time 30.7 sec (23.4-31.7); Calcium 8.8 mg/dL (8.5-10.1); Carbon Dioxide 24.2 meq/L (21.0-32.0); Potassium 4.2 meq/L (3.5-5.1); Prothrombin Time 10.4 sec (9.8-11.6)
[2018-09-27 13:32] LABS: Platelet Estimate Normal (Normal); Platelet Morphology Normal (Normal)
--- NOTE | 2018-09-27 13:48 | XR ---
EXAM DATE: 09/27/2018 1:12 PM EST AGE/SEX: 53 years / Male INDICATIONS: Left hand and 5th finger pain due to fall. CLINICAL DATA: This is the patient's initial encounter. Patient reports that signs and symptoms have been present for 1 day and indicates a pain score of 8/10. MEDICAL/SURGICAL HISTORY: None. None. COMPARISON: No prior exams available for comparison. FINDINGS: There is dislocation at the PIP joint fifth digit without fracture. CONCLUSION: Dislocation at the joint fifth digit Electronically signed by: Damaso Peguero MD 09/27/2018 1:46 PM EST
--- NOTE | 2018-09-27 15:43 | XR ---
EXAM DATE: 09/27/2018 3:27 PM EST AGE/SEX: 53 years / Male INDICATIONS: Post reduction, left hand, 5th digit. CLINICAL DATA: This is the patient's subsequent encounter. Patient reports that signs and symptoms h ave been present for 1 day and indicates a pain score of 3/10. MEDICAL/SURGICAL HISTORY: None. None. COMPARISON: [facility] [place], HAND COMPLETE LEFT MIN 3V, 09/27/2018. . FINDINGS: Anatomic alignment following reduction across the PIP joint of the fifth digit. I do not see a fractu re. CONCLUSION: Anatomic alignment Electronically signed by: Damaso Peguero MD 09/27/2018 3:42 PM EST
[2018-09-27] MEDS ORDERED: Bisacodyl 10 MG Supp RECTAL PRN (16:48)
[2018-09-27] MEDS ORDERED: Acetaminophen 325 MG Tablet PO PRN (16:48)
[2018-09-27] MEDS ORDERED: Vancomycin Consult Pharmacy OTHER PRN (16:49)
[2018-09-27] MEDS ORDERED: Vancomycin Inj 1,000 MG in Sodium Chlor 0.9% Inj 250 ML IV.SIG SCH (16:50)
--- NOTE | 2018-09-27 16:51 | P.HPIM ---
History of Present Illness Primary Care Physician: Bruno Dooley DO Patient is a pleasant 53-year-old male who presents to emergency department approximately 5 days after originally injuring his left hand when he hit it on a brick. Patient reports that he was smoking and attempted to get up too fast and lost his balance and tripped over 1 brick and hit a second brick with his outstretched hand. No other complaints. 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 Diagnosis (1) Finger fracture, left: Review of Systems Review of Systems: all other systems reviewed are negative [facility] Medical History Medical History High cholesterol (Acute) Hypertension (Acute) Stroke (Acute) Surgical History Surgical History History of ankle surgery (Acute) H/O hernia repair (Acute) Social History Social History Substance History: No History of Abuse Second Hand Smoke Exposure: No (PT QUIT 2 WEEKS AGO) Smoking Status: Former smoker Tobacco Type: Cigarettes How Often Do You Have a Drink Containing Alcohol: 2 to 3 times a week Recent Travel in [place] within the Last 8 Weeks: No Recent Out of Country Travel within the Last 8 Weeks: No Immunization History Tetanus Immunization: Unsure Medications and Allergies Allergies Allergy/AdvReac Type Severity Reaction Status Date / Time No Known Allergies Allergy Verified 09/27/18 12:03 Home Medications Medication Instructions Recorded Confirmed Type carvedilol 25 mg PO BID 09/27/18 09/27/18 History Active Medications: Active Medications Acetaminophen (Tylenol) 650 mg PO Q4H PRN PRN Reason: Temp > 100.4 Al Hydroxide/Mg Hydroxide (Milk Of Magnesia Liq) 30 ml PO Q12H PRN PRN Reason: Mild Constipation Bisacodyl (Dulcolax Supp) 10 mg RECTAL DAILY PRN PRN Reason: SEVERE CONSITIPATION Vancomycin HCl 1,000 mg/ (Sodium Chloride) 250 mls @ 250 mls/hr IV.SIG Q12H HERBER Ondansetron HCl (Zofran Inj) 4 mg IV.PUSH Q6H PRN PRN Reason: NAUSEA OR VOMITING Pharmacy Profile Note (Vancomycin Consult Pharmacy) 1 each OTHER UNSCH PRN PRN Reason: Pharmacy to dose Senna/Docusate Sodium (Love-Colace) 1 tab PO BID [facility] Sennosides (Senokot) 17.2 mg PO Q12H PRN PRN Reason: Moderate Constipation Sodium Chloride (Ns Flush) 2 ml IV.FLUSH PRN PRN PRN Reason: FLUSH AFTER USING IV ACCESS Last Admin: 09/27/18 12:44 Dose: 2 ml Sodium Chloride (Ns Flush) 2 ml IV.FLUSH PRN PRN PRN Reason: FLUSH AFTER USING IV ACCESS Sodium Chloride (Ns Flush) 2 ml IV.FLUSH BID [facility] Physical Exam Vital signs: Last Vital Signs Temp 98.3 F 09/27/18 11:46 Pulse 69 09/27/18 12:40 Resp 16 09/27/18 12:40 BP 199/120 H 09/27/18 12:40 Pulse Ox 98 09/27/18 12:40 Intake & Output 09/25/18 09/26/18 09/27/18 09/28/18 06:59 06:59 06:59 06:59 Intake Total 250 / 250 Balance 250 / 250 Weight 90.265 kg gen: nad heent: eomi, perrla cvs: s1/s2 resp: cta gi: soft, non tender, non distended, no guarding or rebound ext: 2+ radial pulse, no calf tenderness msk: splinted RIGHT hand/wrist. dressing intact Results Labs CBC & Chem 7: 09/27/18 12:20 09/27/18 12:20 Imaging Impressions Hand X-Ray 09/27/18 12:14 CONCLUSION: Dislocation at the joint fifth digit Hand X-Ray 09/27/18 15:11 CONCLUSION: Anatomic alignment Caprini VTE Risk Assessment Caprini VTE Risk Assessment: No/Low Risk (score <= 1) Caprini Risk Assessment Model: Point Value = 1 Point Value = 2 Point Value = 3 Point Value = 5 Age 41-60 Minor surgery BMI > 25 kg/m2 Swollen legs Varicose veins or History of unexplained or recurrent spontaneous Oral contraceptives or hormone replacement Sepsis (< 1 month) Serious lung disease, including pneumonia (< 1 month) Abnormal pulmonary function Acute myocardial infarction Congestive heart failure (< 1 month) History of inflammatory bowel disease Medical patient at bed rest Age 61-74 Arthroscopic surgery Major open surgery (> 45 min) Laparoscopic surgery (> 45 min) Malignancy Confined to bed (> 72 hours) Immobilizing plaster cast Central venous access Age >= 75 History of VTE Family history of VTE Factor V Leiden Prothrombin [id number] Lupus anticoagulant Anticardiolipin antibodies Elevated serum homocysteine Heparin-induced thrombocytopenia Other congenital or acquired thrombophilia Stroke (< 1 month) Elective arthroplasty Hip, pelvis, or leg fracture Acute spinal cord injury (< 1 month) Prophylaxis Regimen: Total Risk Factor Score Risk Level Prophylaxis Regimen 0-1 Low Early ambulation 2 Moderate Order ONE of the following: *Sequential Compression Device (SCD) *Heparin 5000 units SQ BID 3-4 Higher Order ONE of the following medications: *Heparin 5000 units SQ TID *Enoxaparin/Lovenox 40 mg SQ daily (WT < 150 kg, CrCl > 30 mL/min) *Enoxaparin/Lovenox 30 mg SQ daily (WT < 150 kg, CrCl > 10-29 mL/min) *Enoxaparin/Lovenox 30 mg SQ BID (WT < 150 kg, CrCl > 30 mL/min) AND/OR *Sequential Compression Device (SCD) 5 or more Highest Order ONE of the following medications: *Heparin 5000 units SQ TID (Preferred with Epidurals) *Enoxaparin/Lovenox 40 mg SQ daily (WT < 150 kg, CrCl > 30 mL/min) *Enoxaparin/Lovenox 30 mg SQ daily (WT < 150 kg, CrCl > 10-29 mL/min) *Enoxaparin/Lovenox 30 mg SQ BID (WT < 150 kg, CrCl > 30 mL/min) AND *Sequential Compression Device (SCD) Assessment and Plan (1) Finger fracture, left: Code(s): S62.609A - Fracture of unspecified phalanx of unspecified finger, initial encounter for closed fracture Status: Acute Patient is a 53 year old male presenting with hand laceration and finger dislocation s/p splinting Orthopedics: Dislocation at the joint fifth digit - ortho to eval in am - open laceration noted. had uptodate tetanus - pain control w/ tylenol. patient declined percocet for breakthrough -s/p splinting in ED - npo at midnight [facility] hand wants to do a procedure cardiology: htn - continue carvedilol code: fc dvt ppx: ambulation dispo: [facility]
--- NOTE | 2018-09-27 17:06 | ECG ---
Date Performed: 09/27/2018 Time Performed: 12:33:21 PTAGE: 53 years EKG: Sinus rhythm NORMAL ECG No significant change from prior electrocardiogram. PREVIOUS TRACING : 04/23/2018 23.54 DOCTOR: Kayode Munoz Interpretating Date/Time 09/27/2018 17:04:56
[2018-09-27] MEDS: Carvedilol 12.5 MG Tablet PO SCH ×2 (22:52→23:35)
[2018-09-27] MEDS: Senna/Docusate Sodium 8.6/50 MG Tablet PO SCH (22:52)
[2018-09-28 05:25] LABS: Hematocrit 43.5 % (39.0-51.0); Hemoglobin 15.1 gm/dL (13.0-17.0); Mean Corpuscular HGB Conc 34.8 % (32.0-36.0); Mean Corpuscular Hemoglobin 32.3 pg (27.0-34.0); Mean Corpuscular Volume 93.1 fL (80.0-100.0); Mean Platelet Volume 8.3 fL (7.0-11.0); Platelet Count 222 th/mm3 (150-450); Red Blood Count 4.68 mil/mm3 (4.50-5.90); Red Cell Distribution Width 13.5 % (11.6-17.2); White Blood Count 9.9 th/mm3 (4.0-11.0)
[2018-09-28 05:45] LABS: INR 1.1 Ratio; Prothrombin Time 10.9 sec (9.8-11.6)
[2018-09-28 05:50] LABS: Calcium 8.4 mg/dL (8.5-10.1); Carbon Dioxide 26.5 meq/L (21.0-32.0); Magnesium 2.3 mg/dL (1.5-2.5); Potassium 3.9 meq/L (3.5-5.1)
[2018-09-28] MEDS: Carvedilol 12.5 MG Tablet PO SCH ×2 (09:58→22:18)
[2018-09-28] MEDS: Senna/Docusate Sodium 8.6/50 MG Tablet PO SCH ×2 (09:58→22:18)
--- NOTE | 2018-09-28 13:53 | P.PNIM ---
Subjective Interval history: Patient seen and evaluated splinted bedside.. Patient without acute complaints at this time for fever or chills. Patient still awaiting orthopedic hand evaluation at this time says that he has no complaints the hand including numbness or tingling. Patient reports that he used to pain medication overnight for comfort but otherwise been doing well. No other complaints include chest pain or palpitations. Physical Exam Vital signs: Last Vital Signs Temp 97.7 F 09/28/18 12:00 Pulse 68 09/28/18 12:00 Resp 18 09/28/18 12:00 BP 132/93 H 09/28/18 12:00 Pulse Ox 97 09/28/18 12:00 Intake & Output 09/26/18 09/27/18 09/28/18 09/29/18 06:59 06:59 06:59 06:59 Intake Total 992.5 / 992.5 Balance 992.5 / 992.5 Weight 78 kg Constitutional no acute distress Routine HEENT Exam Eye: Present EOMI and PERRL Routine Respiratory Exam Present CTA bilaterally Routine Cardiovascular Exam Present RRR, S1 and S2 Routine Abdominal Exam Present soft and normoactive bowel sounds Routine Extremities Exam Present normal capillary refill Routine Skin Exam Present intact, dry and warm Routine Neurological Exam Present alert and oriented X3 Additional findings Additional findings: Musculoskeletal: Dressing intact in left upper extremity hand and wrist. 2+ radial pulse palpated on left upper extremity and right upper extremity bilaterally. Capillary refill less than 2 seconds. Sensation intact in all digits. Results Labs CBC & Chem 7: 09/28/18 04:48 09/28/18 04:48 Labs: Microbiology 09/27/18 12:25 Blood - Peripheral Aerobic Blood Culture - Preliminary No growth in 1 day 09/27/18 12:25 Blood - Peripheral Anaerobic Blood Culture - Preliminary No growth in 1 day 09/27/18 12:15 Blood - Peripheral Aerobic Blood Culture - Preliminary No growth in 1 day 09/27/18 12:15 Blood - Peripheral Anaerobic Blood Culture - Preliminary No growth in 1 day Imaging Imaging: Impressions Hand X-Ray 09/27/18 12:14 CONCLUSION: Dislocation at the joint fifth digit Hand X-Ray 09/27/18 15:11 CONCLUSION: Anatomic alignment Assessment and Plan (1) Finger fracture, left: Code(s): S62.609A - Fracture of unspecified phalanx of unspecified finger, initial encounter for closed fracture Status: Acute Patient is a 53 year old male presenting with hand laceration and finger dislocation s/p splinting Orthopedics: Dislocation at the joint fifth digit - Orthopedics team to evaluate patient for possible intervention. - open laceration noted and presentation patient is up-to-date tetanus vaccination - pain control w/ tylenol and percocet. - s/p splinting in ED - currently NPO cardiology: htn - continue carvedilol code: fc dvt ppx: ambulation dispo: medsurg Progress Note: Quality VTE Deep Vein Thrombosis/Pulmonary Embolism Present on Admission: No
[2018-09-28] MEDS: Vancomycin Inj 1,250 MG in Sodium Chlor 0.9% Inj 250 ML IV.SIG SCH ×3 (14:24)
--- NOTE | 2018-09-28 23:00 | MB ---
cc: Jessica Albert MD DATE: 09/28/2018 REASON FOR CONSULTATION: Open left small finger proximal interphalangeal dislocation. HISTORY OF PRESENT ILLNESS: Tenzin Chand is a 53-year-old male who presented to the emergency room yesterday on 09/27/2018. He states that he accidentally injured the finger on the left hand on Tuesday, several days ago, but did not present to the emergency room until today. The patient does have a history of significant for a stroke on the right upper extremity. The patient also has past medical history significant for hypertension. PAST SURGICAL HISTORY: Ankle surgery and hernia repair. SOCIAL HISTORY: Denies alcohol or drug use. Does smoke. PHYSICAL EXAMINATION: The patient is alert and oriented. Contracture to the right upper extremity. Splint removed from the left hand. There was an open laceration over the volar aspect of the left small finger at the level of the PIP joint. No purulence. Function intact of FDS and FDP. Sensation intact in the medial and ulnar side. Less than 2 second capillary refill. DIAGNOSTIC DATA: X-rays reviewed, which show no fracture. There was dislocation dorsally of the left small finger PIP joint with subsequent relocation by the emergency room. ASSESSMENT AND PLAN: A 53-year-old male with several day history of open dislocation of the left small finger PIP joint, which has now been reduced. Treatment options were discussed with the patient, including irrigation and debridement in the operating room, versus observation. The patient declined surgical intervention. He understands he is at high risk for infection. He will remain on IV antibiotics and be discharged on oral antibiotics for close followup. He will be seen in the office for a custom splint. MD ROSALIA Faria/nain , 10:27 PM , 10:31 PM [facility]
[2018-09-28] MEDS ORDERED: Pharmacy Ordered Lab Info OTHER ONE (23:45)
[2018-09-29] MEDS: Vancomycin Inj 1,250 MG in Sodium Chlor 0.9% Inj 250 ML IV.SIG SCH (03:24)
[2018-09-29 05:34] VITALS: PULSE 69; O2SAT 96
--- NOTE | 2018-09-29 08:42 | P.DS ---
Date of admission: 09/27/18 15:43 Primary care physician: Bruno Dooley DO Attending physician on discharge: Colleen Snow Anticipated date of discharge: 09/29/18 Brief History from admission: Patient is a pleasant 53-year-old male who presents to emergency department approximately 5 days after originally injuring his left hand when he hit it on a brick. Patient reports that he was smoking and attempted to get up too fast and lost his balance and tripped over 1 brick and hit a second brick with his outstretched hand. No other complaints. 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 DS: Medications - Discharge Medications Prescriptions: clindamycin HCl 300 mg PO TID #21 cap hydrocodone-acetaminophen 1 tab PO Q6H PRN #12 tab PRN Reason: Pain Scale 1 To 10 DS: Summary Hospital Course: 53-year-old male with past medical history significant for HLD, HTN and CVA who presented to the emergency department on 09/27 approximately 5 days after original injury on the left hand. Patient apparently got up too fast losing his balance and tripping landing on outstretched hand resulting in dislocation of left hand fifth digit. Dislocation was reduced in the emergency department, finger was also irrigated with Betadine and placed into a splint. Was started on IV vancomycin and hand surgery consulted for further evaluation. No surgical intervention at this moment, recommendations to discharge on oral antibiotics and close follow-up with Dr. Albert on Tuesday or Tuesday. Patient is seen and examined sitting up in chair in no acute distress. He denies any fevers, chills, nausea, vomiting or diarrhea. Reports his pain is well controlled. Would like to be discharged today. Understands that he will need to follow-up with Dr. Albert in office either Tuesday or Tuesday, discussed the importance of antibiotics, discussed with attending. He voices no other acute concerns at the moment. - Time Spent with Patient Total time spent providing and/or coordinating discharge services: Less than 30 minutes - Quality: VTE Deep Vein Thrombosis/Pulmonary Embolism Present on Admission: No Exam Vital signs: Vital Signs 09/28/18 12:00 09/28/18 16:00 09/28/18 19:38 Temperature 97.7 F 97.8 F 98.4 F Pulse Rate 68 70 65 Respiratory Rate 18 18 18 Blood Pressure 132/93 H 140/89 159/97 H Pulse Oximetry 97 96 96 09/28/18 23:44 09/29/18 02:30 09/29/18 04:44 Temperature 98.1 F 98.5 F Pulse Rate 74 69 Respiratory Rate 17 18 16 Blood Pressure 144/99 H 133/90 Pulse Oximetry 97 96 Intake & Output 09/28/18 09/29/18 09/29/18 18:59 06:59 18:59 Intake Total 262.5 / 262.5 360 / 360 Output Total 0 / 0 Balance 262.5 / 262.5 360 / 360 Weight 89.8 kg Intake: IV 262.5 / 262.5 Vancomycin Inj 1,250 MG In NS 262.5 / 262.5 Inj 250 ML @ 262.5 mls/hr IV. SIG Q12H HERBER Rx#:[id number] Oral 0 / 0 360 / 360 Output: Stool 0 / 0 Other: # Voids 1 2 Date of Last Bowel Movement 09/27/18 09/27/18 # Bowel Movements 0 Narrative: GENERAL: Well-developed, well-nourished male sitting up in chair in no acute distress. SKIN: Warm and dry. HEAD: Atraumatic. Normocephalic. EYES: Pupils equal and round. No scleral icterus. No injection or drainage. NECK: Trachea midline. CARDIOVASCULAR: Regular rate and rhythm. RESPIRATORY: No accessory muscle use. Clear to auscultation. Breath sounds equal bilaterally. MUSCULOSKELETAL: Extremities without clubbing or cyanosis. Left hand in splint with an mobilized fifth digit, mobility limited secondary to splint. Capillary refill less than 3 seconds + sensation. NEUROLOGICAL: Awake, alert, oriented x3. No obvious cranial nerve deficits. Motor grossly within normal limits. Normal speech. PSYCHIATRIC: Appropriate mood and affect; insight and judgment normal. Results Procedures completed during hospitalization: Side: left Joint Reduction Location: finger (digit #5) Analgesia: nerve block Local anesthetic used: lidocaine 1% Amount of anesthetic used (mL): 3 Technique Used: direct manipulation Post-Reduction Neuro Exam: intact Post-Reduction Vascular Exam: intact Post Reduction X-Ray Obtained: Yes Splint Applied: Yes Patient Tolerated Procedure: well Labs on day of discharge: Preliminary micro results at discharge 09/27/18 12:25 Aerobic Blood Culture - Preliminary Blood - Peripheral No growth in 1 day Anaerobic Blood Culture - Preliminary No growth in 1 day 12/12/18 12:15 Aerobic Blood Culture - Preliminary Blood - Peripheral No growth in 1 day Anaerobic Blood Culture - Preliminary No growth in 1 day - Impressions ITS Impressions Hand X-Ray 09/27/18 15:11 CONCLUSION: Anatomic alignment Discharge Plan - Discharge Disposition Patient Disposition: 01 Discharge Home - Discharge Condition Condition: Stable - Discharge Order Discharge Orders: Discharge Order (Routine); Ordered 09/29/18 Ordered By: Colleen Snow - Physicians Team Primary Care Provider: Bruno Dooley Attending Provider: Colleen Snow Other Providers: Jessica Albert MD
[2018-09-29 08:59] VITALS: BP 131/93; RESP 17; TEMP 97.7
[2018-09-29] MEDS: Carvedilol 12.5 MG Tablet PO SCH (09:02)
[2018-09-29] MEDS: Senna/Docusate Sodium 8.6/50 MG Tablet PO SCH (09:06)
== END 2018-09-29 09:11 | disposition home or self-care (01) ==
LOC: NEPD 11:38 → NEDA 11:38 → N06 21:10
PROVIDERS: ADMIT Hospitalist; ATTEND Hospitalist
DX: S61.217A Laceration without foreign body of left little finger without damage to nail, initial encounter; Z86.73 Personal history of transient ischemic attack (TIA), and cerebral infarction without residual deficits; W01.0XXA Fall on same level from slipping, tripping and stumbling without subsequent striking against object, initial encounter; R42 Dizziness and giddiness; S63.257A Unspecified dislocation of left little finger, initial encounter; F17.210 Nicotine dependence, cigarettes, uncomplicated; E78.00 Pure hypercholesterolemia, unspecified; I10 Essential (primary) hypertension